=== PATIENT | male | born 1975 | race Caucasian/White ===

== ENCOUNTER 2024-06-12 11:22 | Outpatient (AMB) | payer OTHER, SELFPAY ==
[2024-06-12 11:29] VITALS: BP 130/78; PULSE 80; TEMP 36.4; O2SAT 97; BMI 40.9
--- NOTE | 2024-06-12 11:29 | AM.OFFWIN_ITS ---
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 He states the wheezing has resolved yesterday. He tells me he is able to eat and drink normally, he has been taking the following medications to help himself feel better which seemed to be working, NyQuil, [place] cold and flu as well as cough drops at night. He did test for COVID and it was negative at home. He denies a history of asthma or COPD. He states he felt the worst on Monday and a little bit better yesterday and even better today and he is wondering if he can go back to work. [facility] Social History Patient Tobacco Use Status: Never used Tobacco Review of Systems Const All systems reviewed & are unremarkable except as noted in HPI and below Physical Exam Vital Signs: Last Vital Signs Temp 97.6 F 06/12/24 11:29 Pulse 80 06/12/24 11:29 BP 130/78 06/12/24 11:29 Pulse Ox 97 06/12/24 11:29 Oxygen Delivery Method Room Air 06/12/24 11:29 BMI result Body Mass Index 40.9 Const General: cooperative, healthy appearing, comfortable and no acute distress Orientation/consciousness: patient oriented x3 Limitations: no limitations HEENT Head: Yes normal to inspection Ears: hearing grossly normal bilaterally, external ears normal and TM's normal bilaterally General nose exam: Normal external nose present, Normal nares present and No nasal discharge present Face and sinus: Yes normal facial exam and Yes sinuses nontender Mouth: Normal oral and palatal mucosa present and moist mucous membranes Throat: Yes tonsils normal, Yes uvula midline and Yes posterior oropharynx abnormal (Erythema) Eyes General: appearance normal, both eyes and all related structures Neck Neck: Yes normal visual inspection Resp Effort & Inspection: normal respiratory effort, able to speak in complete sentences, Actively coughing, no respiratory distress, not tachypneic, no tripod positioning and no use of accessory muscles Auscultation: clear to auscultation bilaterally Cardio Rate: regular rate Rhythm: regular rhythm Heart sounds: normal S1 and S2 Skin General skin exam: no rashes or lesions noted Neuro General: patient oriented x3 Extrem General: Yes normal to inspection and Yes no clubbing, cyanosis or edema Assessment & Plan Assessment & Plan (1) URI (upper respiratory infection): Code(s): J06.9 - Acute upper respiratory infection, unspecified Qualifiers: URI type: unspecified URI Qualified Code(s): J06.9 - Acute upper respiratory infection, unspecified Plan: Vital signs are stable, patient well-appearing and physical exam was unremarkable. I did test him for flu COVID and RSV and wrote him a work note. Recommended he continue with [id number] medications to treat his symptoms as this is likely a viral illness. Plan See above Orders: Orders SARS-CoV2/FLU/RSV Today J06.9 - Acute upper respiratory infection, unspecified Coding Level of Care Code New Pt Level 3 (64607) Diagnoses Upper respiratory tract infection, unspecified type J06.9 URI type: unspecified URI
== END 2024-06-12 12:15 | disposition home or self-care (01) ==
PROVIDERS: PCP Hospitalist; Visit Provider Physician Assistant
DX: J06.9 Acute upper respiratory infection, unspecified (principal)

== ENCOUNTER 2024-06-12 11:22 | Outpatient (REF) | payer OTHER, SELFPAY ==
[2024-06-12 14:21] LABS: Influenza A PCR NEGATIVE (Negative); Influenza B PCR NEGATIVE (Negative); Resp Syncy Virus RNA Qual PCR NEGATIVE (Negative); SARS COV2 PCR INHOUSE NEGATIVE (Negative)
== END 2024-06-12 11:23 | disposition home or self-care (01) ==
LOC: HO.LNP 11:22
PROVIDERS: PCP Hospitalist; Visit Provider Physician Assistant
DX: J06.9 Acute upper respiratory infection, unspecified (principal)
CPT/HCPCS: 0241U

== ENCOUNTER 2025-04-09 08:26 | Outpatient (AMB) | payer OTHER, SELFPAY ==
--- NOTE | 2025-04-09 08:43 | AM.OFFWIN_ITS ---
Intake Vital Signs 04/09/25 08:44 Height 5 ft 10 in Weight 288 lb BMI 41.3 BP 128/84 Blood Pressure Location Lt brachial Position Sitting Pulse 85 Pulse Source Pulse Oximeter Temp 98.4 F Temp Source Oral Pulse Oximetry (%) 95 Oxygen Delivery Method Room Air Intake Visit Reasons: ep coughing, sob when sleeping Intake Note: pt presents with chest congestion with coughing, body chills, SOB with sleep (denies any sleep apnea)- s/s x3 days Patient Tobacco Use Status: Never used Tobacco Allergies No Known Allergies Allergy (Verified 04/09/25 08:45) Do you need a note to return to daycare/school/sports/work: Yes HPI HPI Comments History of Present Illness Details History - The patient is a 50-year-old male pres enting with symptoms of a respiratory infection. - Symptoms began after returning from [facility] 3 days ago, including cough and fever, with the cough causing rib pain and wheezing, especially when lying down. - Fever resolved, but cough persisted; n o history of asthma or COPD, and the patient is a non-smoker. - Self-treatment with Mucinex and NyQuil provided some relief, with wheezing and coughing mainly at night. Physical Exam General: Cooperative, healthy appearing, comfortable and no acute distress Orientation/consciousness: Patient oriented x3 Limitations: No limitations Head: Normal to inspection Ears: Hearing grossly normal bilaterally, external ears normal and TM's normal bilaterally Nose: Normal external nose present, Normal nares present and No nasal discharge present Face and sinus: Normal facial exam and Yes sinuses nontender Mouth: Normal oral and palatal mucosa present and moist mucous membranes Throat: Yes tonsils normal, Yes uvula midline. Posterior oropharynx erythema, no exudates Eyes: Appearance normal, both eyes and all related structures Neck: Normal visual inspection, full ROM Respiratory: Clear to auscultation bilaterally. Normal respiratory effort, able to speak in complete sentences, not Actively coughing, no respiratory distress, not tachypneic, no tripod positioning and no use of accessory muscles Cardiovascular: Regular rate and rhythm. Normal S1 and S2 Skin: No rashes or lesions noted Neuro: Patient oriented x3 Extremities: Normal to inspection and Yes no clubbing, cyanosis or edema PFSH Social History Patient Tobacco Use Status: Never used Tobacco Review of Systems Const All systems reviewed & are unremarkable except as noted in HPI and below Physical Exam Vital Signs: Last Vital Signs Temp 98.4 F 04/09/25 08:44 Pulse 85 04/09/25 08:44 BP 128/84 04/09/25 08:44 Pulse Ox 95 04/09/25 08:44 Oxygen Delivery Method Room Air 04/09/25 08:44 BMI result Body Mass Index 41.3 Assessment & Plan Assessment & Plan (1) URI (upper respiratory infection): Code(s): J06.9 - Acute upper respiratory infection, unspecified Qualifiers: URI type: unspecified URI Qualified Code(s): J06.9 - Acute upper respir atory infection, unspecified Plan: Patient was informed and verbally consented to the use of an ambient scribe for clinic note documentation during this visit. Acute Viral Respiratory Infection - VSS, pt well appearing and PE unremarkable. - Symptomatic treatment with Tessalon Perles for nighttime cough suppression to aid sleep. - Continue DayQuil and NyQuil for symptom management, with Mucinex as an option for decongestion. - Advised to wear a mask at work to reduce viral transmission risk. - Okay to write work note for 3 days. Orders: [place] Resp Pathogen [place] [facility] [place] J06.9 - Acute upper respiratory infection, un specified Medications: New benzonatate 200 mg PO BEDTIME PRN 10 caps 0RF cough Coding Level of Care Code New Pt Level 3 (70358) Diagnoses Upper respiratory tract infection, unspecified type J06.9 URI type: unspecified URI
[2025-04-09 08:44] VITALS: BP 128/84; PULSE 85; TEMP 36.9; O2SAT 95; BMI 41.3
--- OUTSIDE RECORDS SUMMARY | 2025-04-09 09:43 | XMS_ITS | Clinical Summary ---
Author Organization [facility] Address [address] [place] [address] Phone Care Team Providers Care Lapidary Apprentice Name Role Phone Keven Lewis MD Primary Care Provider [phone] Allergies No known active allergies Medications No known medications Social History Tobacco Use Types Packs/Day Years Used Date Smoking Tobacco: Never Smokeless Tobacco: Never Alcohol Use Standard Drinks/Week Comments Yes 0 (1 standard drink = 0.6 oz pur e alcohol) occassionally Education Answer Date Recorded Are you interested in more education? Not on sabrina e 11/25/2022 Are you concerned about learning? Not on file 11/25/2022 No 11/25/2022 No 11/25/2022 Digital Access Answer Date Recorded No 12/27/2022 No 12/27/2022 Reliable internet access at home? Not on file 12/27/2022 Device with a working camera? Not on file Sex and Gender Information Value Date Recorded Sex Assigned at Male 03/31/2020 12:24 PM EDT Legal Sex Male 12:15 PM EDT Gender Identity Male 03/31/2020 12:24 PM EDT Sexual Orientation Not on file Last Filed Vital Signs Vital Sign Reading Time Taken Comments Blood Pressure 155/100 03/31/2020 12:20 PM EDT Pulse 74 03/31/2020 12:20 PM EDT Temperature 35.6 C (96.1 F) 03/31/2020 12:20 PM EDT Respiratory Rate 20 03/31/2020 12:20 PM EDT Oxygen Saturation 96% 03/31/2020 12:20 PM EDT Inhaled Oxygen Concentration - - Weight 124.7 kg (275 lb) 03/31/2020 12:20 PM EDT Height 177.8 cm (5' 10 ) 03/31/2020 12:20 PM EDT Body Mass Index 39.46 03/31/2020 12:20 PM EDT Plan of Treatment Not on file Medical Devices Not on file Insurance [address] [address] PPO EPO PPO [place] [address] [place] [address] [place] [address] [address] [place] [address] [address] PPO EPO PPO EPO PPO EPO PPO EPO [employer] Care Teams Lapidary Apprentice Relationship Specialty Start Date End Date Keven Lewis MD PCP - General Internal Medicine 03/31/20 Additional Source Comments The information contained in this document represents components of the legal health record. It is not the complete legal health record.[facility]
== END 2025-04-09 09:23 | disposition home or self-care (01) ==
PROVIDERS: PCP Hospitalist; Visit Provider Physician Assistant
DX: J06.9 Acute upper respiratory infection, unspecified (principal)

== ENCOUNTER 2025-04-09 08:26 | Outpatient (REF) | payer OTHER, SELFPAY ==
[2025-04-09 12:46] LABS: Chlamydia pneumoniae PCR Not Detected (Not Detect.); Coronavirus 229E PCR Not Detected (Not Detect.); Coronavirus HKU1 PCR Not Detected (Not Detect.); Coronavirus NL63 PCR Not Detected (Not Detect.); Coronavirus OC43 PCR Not Detected (Not Detect.); RSV PCR Not Detected (Not Detect.); Rhino/Enterovirus PCR Detected (Not Detect.)
[2025-04-09 13:31] LABS: Influenza A H1 PCR Not Detected (Not Detect.); Influenza A H1-2009 PCR Not Detected (Not Detect.); Influenza A H3 PCR Not Detected (Not Detect.); SARS-CoV-2 PCR Not Detected (Not Detect.)
== END 2025-04-09 08:27 | disposition home or self-care (01) ==
LOC: HO.LAB 08:26
PROVIDERS: PCP Hospitalist; Visit Provider Physician Assistant
DX: J06.9 Acute upper respiratory infection, unspecified (principal); Z79.899 Other long term (current) drug therapy
CPT/HCPCS: 87633

== ENCOUNTER 2025-07-21 10:15 | Outpatient (REF) | payer OTHER, SELFPAY ==
[2025-07-21 14:28] LABS: Resp Syncy Virus RNA Qual PCR NEGATIVE (Negative); SARS COV2 PCR INHOUSE NEGATIVE (Negative)
--- OUTSIDE RECORDS SUMMARY | 2025-07-21 15:08 | XMS_ITS | Data Portability ---
Author Organization [place] [facility] Address [address] [place] [phone] Assessment Encounter Date Assessment Date Assessment LastModified by Organization Details LastModified Time 11/14/2020 11/14/2020 Overview/History : Pt is an otherwise healthy 45yo M with no sig PMH who is new to and to this MEET. Pt calls today with a 2 week hx of cough. He reports a mild intermittent ENGLAND when he has more forceful coughing episodes. Reports a hx of seasonal allergies. Denies any sore throat, SOB, INFANTE, change in sense of taste/smell, n/v/d, fever or chills. Exam: Pt is A/Ox3, non-toxic appearing, VSS, HRR, resp reg and unlabored on RA, lungs CTA bilat. HEENT exam pos for mild erythema to the bilat ear canals and mild cobble stoning. DDx considered, but not limited to: Seasonal Allergies: likely given prior hx, sx and PE COVID: possible given length of sx, but mild in nature, no known recent exposures URI: possible, but sx have been present for 2 weeks Work up/Results: COVID: pending Plan/Discussion: Pt advised to use his allergy medications to help with sx. Advised on s/s of COVID, when to report to the ER, and OTC medications to use for sx as needed as well as to self isolate until the results of the test are known. Patients PCP contacted and updated on patient status. Patient verbalized understanding of discharge instructions and when to follow up with PCP/911/ED as needed. Patient in agreement with current plan and treatment. [email or web address] Not available 11/14/2020 14:22:21 11/16/2020 11/16/2020 Time On Scene with Patient: 00:07:51 [email or web address] Not available 11/16/2020 18:16:12 Plan of Treatment Reminders Order Date Submit Date Provider Last Modified By Organization Details Last Modified Time Details Appointments None recorded. Lab SARS CoV 2 RNA (COVID-19), QL, patient admitting representative-PCR, respiratory specimen 2020 021 [facility] (Centralized Electronic Ordering - All Locations), Patient Can Go To The Location Of Their Choice, [id number] 07:38:25 Referral None recorded. Procedures None recorded. Surgeries None recorded. Imaging None recorded. Medication Orders None recorded. Patient TargetsNo targets recorded. Patient Instructions Encounter Date Encounter Id Patient Instructions Last Modified By Organization Details Last Modified Time 11/14/2020 [id number] What is coronavirus disease 2019? Coronavirus disease 2019 (COVID-19) is a respiratory illness that can spread from person to person. The virus that causes COVID-19 is a novel coronavirus that was first identified during an investigation into an outbreak in [facility]. Can I get COVID-19? Yes. COVID-19 is spreading from person to person in parts of the world. Risk of infection from the virus that causes COVID-19 is higher for people who are close contacts of someone known to have COVID-19, for example household members. Other people at higher risk for infection are those who live in or have recently been in an area with ongoing spread of COVID-19. How does COVID-19 spread? The virus that causes COVID-19 probably emerged from an animal source, but is now spreading from person to person. The virus is thought to spread mainly between people who are in close contact with one another (within about 6 feet) through respiratory droplets produced when an infected person coughs or sneezes. It also may be possible that a person can get COVID-19 by touching a surface or object that has the virus on it and then touching their own mouth, nose or possibly their eyes, but this is not thought to be the main way the virus spreads. What are the symptoms of COVID-19? Patients with COVID-19 have mild to severe respiratory illness with symptoms of: fever cough shortness of breath What are severe complications from this virus? Some patients have pneumonia in both lungs, multi-organ failure and in some cases . People can help protect themselves from respiratory illness with everyday preventative actions. Avoid close contact with people who are sick. Avoid touching your eyes, nose, and mouth with unwashed hands. Wash your hands often with soap and water for at least 20 seconds. Use an alcohol-based hand pediatric pathologist that contains at least 60% alcohol if soap and water are not available If you are sick, to keep from spreading respiratory illness to others, you should Stay home when you are sick. Cover your cough or sneeze with a tissue, then throw the tissue in the trash. Clean and disinfect frequently touched objects and surfaces. Is there a treatment? There is no specific antiviral treatment for COVID-19. People with COVID-19 can seek medical care to help relieve symptoms. FOR MORE INFORMATION: [email or web address].GOV/COVID 19 [email or web address] Not available 11/14/2020 14:15:00 11/16/2020 [id number] Follow up to re-collect Covid swab. [email or web address] Not available 11/16/2020 18:29:21 Reason for Referral None Reported. Results Created Date Observation Date Name Description Value Unit Range Abnormal Flag Note LastModifiedBy Organization Detail LastModifiedTime 11/17/19 21 11/17/2020 covid -19 (nove l coron aviru s) PCR covid-19 PCR result (neg) NEGAT ARJUN 2019- novel Coron aviru s (2018 -nCoV ) not detec adria by real- time RT-PC R. Note: If clini pavel suspi cion for COVID -19 is high, eze nue to maint ain preca ution s and consi malia repea t testi ng. Resul t repor adria to the [facility]. To preve nt error s in diagn osis, test resul ts shoul d be inter prete d in the gilbert xt of clini pavel findi ngs and other labor atory data. Rare polym orphi sms exist that could lead to false -nega tive or false -posi tive resul ts. If resul ts obtai rebecca do not match the clini pavel findi ngs, addit ional testi ng shoul d be consi dered . This test has been autho rized by the FDA under an Emerg ency Use Autho rizat ion (EUA) for use by [facility] labor atori es. Testi ng perfo rmed by real time PCR shalinii ricardo GREY 6800 SARS- CoV-2 test. Not Available [facility] (Centralized Electronic Ordering - All Locations) Patient Can Go To The Location Of Their Choice, [id number] 11/17/2020 15:13:55 11/17/19 21 11/17/2020 covid -19 (nove l coron aviru s) PCR covid-19 PCR specimen source NASAL Not Available [facility] (Centralized Electronic Ordering - All Locations) Patient Can Go To The Location Of Their Choice, [id number] 11/17/2020 15:13:55 Result Notes None recorded. Medical Equipment None Reported. Allergies No known drug allergies Medications Not known to be on any medication Vitals Date Recorded Respiratory rate Heart rate Body temperature Oxygen saturation Systolic And Diastolic Provider Name and Address Organization Details Last Updated DateTime 20 /min 74 /min 98.9 [degF] 100 % 122/76 mm[Hg] Not Available [facility] 14:00:19 Date Recorded Body temperature Oxygen saturation Respiratory rate Heart rate Systolic And Diastolic Provider Name and Address Organization Details Last Updated DateTime 98.2 [degF] 98 % 16 /min 68 /min 128/70 mm[Hg] Not Available [facility] 18:15:01 Social History Question Answer Notes LastModified by DoubleRecall Details LastModified Time Tobacco Smoking Status Never Smoker LISSETT SOLANO, [address] [place], [address], [place] [facility] 11/14/2020 13:57:42 Do You Have An Advance Directive? No Information not available 11/14/2020 What Is Your Code Status? Full Code Information not available 11/14/2020 Excessive Alcohol Or Drug Use No Information not available 11/14/2020 Sex: Unknown Functional Status Question Answer Note LastModified by DoubleRecall Details LastModified Time Do you or have you ever used e-cigarettes or vape? Never used electronic cigarettes Information not available 11/14/2020 Mental Status None recorded. Family History Relationship Description Onset Age of this Age Resolved Age Notes LastModified by Organization Details LastModified Time Father Coronary arterioscler osmaria eugenia posey Not available 11/14 13:58:16 Medical History Condition Response Coronary Artery Disease N Depression N COPD N Diabetes N Cancer N Stroke N Asthma N High Cholesterol N Pulmonary Embolism N Hypertension N Kidney Disease N Past Encounters Encounter ID Performer Location Encounter Start Date Encounter Closed Date Diagnosis/Indication Diagnosis SNOMED-CT Code Diagnosis ICD10 Code Diagnosis IMO Codes Diagnosis Note [id number] LISSETT LACKEYSIMON, [employer] [facility] [address] [place] [address] 11/14/2020 13:53:49 11/14/2020 14:25:23 Seasonal allergic rhinitis 162584949 J30.2 Exposure t o communicable disease 773908216 Z20.822 [id number] Angle Cunningham [employer] [facility] [address] [place] [address] 11/16/2020 18:08:27 11/16/2020 18:32:32 Health Concerns Section Related Observation LastModified by Organization Detai ls LastModified Time None Recorded Concern Status LastModified by Organization Details LastModified Time None Recorded Advance Directives Directive N: Payers Insurance Date Sequence Insurance Name Policy Number Policy Diaz Covered Member ID Diaz Member ID Guarantor Name 11/14/2020 1 [employer] [id number] Demetrius Cournoyer [id number] Demetrius Cournoyer 11/14/2020 1 [employer] [id number] Demetrius Cournoyer [id number] Demetrius Cournoyer 11/14/2020 1 [employer] [id number] Demetrius Cournoyer [id number] 1 Demetrius Cournoyer 11/14/2020 1 [employer] [id number] Demetrius Cournoyer [id number] 1 Demetrius Cournoyer 11/14/2020 1 [employer] [id number] Demetrius Cournoyer [id number] 1 Demetrius Cournoyer 11/14/2020 1 [employer] [id number] Demetrius Cournoyer [id number] 1 Demetrius Cournoyer 11/14/2020 1 *SELF PAY* Demetrius Cournoyer [id number] Demetrius Cournoyer 11/14/2020 1 DARRION [id number] [facility] [id number] 1 Demetrius Sanamohamud Notes Date Note Type Note Provider Name and Address Organization Details Recorded Time 11/14/2020 text/html Pt reports a 2 week hx of a cough. States the cough is worse at night when he is trying to sleep. Reports intermittent [place]GL[place] when he has forceful coughing episodes, denies nasal congestion, sore throat, earache, n/v/d, change in sense of taste/smell, fever/chills. denies orthopnea, SOB, INFANTE. edema. LISSETT SOLANO NP [address] [place], [address], [place] [facility] 11/14/2020 14:22:50 11/16/2020 text/html follow up DH re-collection of Covid swab. Lab unable to locate original PCR swab obtained this past Monday. VSS. Angle Cunningham NP [address], [place], [address], [place] [facility] 11/16/2020 18:29:31
== END 2025-07-21 10:16 | disposition home or self-care (01) ==
LOC: HO.LNP 10:15
PROVIDERS: Physician Assistant Medical; PCP Hospitalist
DX: R55 Syncope and collapse (principal); R09.89 Other specified symptoms and signs involving the circulatory and respiratory systems; Z03.818 Encounter for observation for suspected exposure to other biological agents ruled out
CPT/HCPCS: 87637

== ENCOUNTER 2025-07-21 10:15 | Outpatient (AMB) | payer OTHER, SELFPAY ==
[2025-07-21 11:29] VITALS: BP 132/88; PULSE 71; TEMP 36.3; O2SAT 97; BMI 41.9
--- NOTE | 2025-07-21 11:29 | MHC.OFFWIV ---
Intake Vital Signs 07/21/25 11:29 Height 5 ft 10 in Weight 292 lb BMI 41.9 BP 132/88 Blood Pressure Location Lt brachial Position Sitting Pulse 71 Pulse Source Pulse Oximeter Temp 97.4 F Temp Source Oral Pulse Oximetry (%) 97 Oxygen Delivery Method Room Air Intake Visit Reasons: EP cough congestion at night wheezing Intake Note: pt presents with chest congestion and coughing, wheezing at night x3 days- states he's most concerned with syncope episode yesterday morning when he woke up and went to use bathroom- at that time his ears were blocked and he was sweating Patient Tobacco Use Status: Never used Tobacco Allergies No Known Allergies Allergy (Verified 07/21/25 11:31) Do you need a note to return to daycare/school/sports/work: Yes HPI HPI Comments History of Present Illness Details History - The patient is a 50 year old male presenting with cold-like symptoms and a syncopal episode. - He has been experiencing cold symptoms since last Monday, which worsen at night and include coughing fits severe enough to cause gagging. - The primary concern is a syncopal episode that occurred one morning around 6:45 AM when he got up to use the bathroom. - He did not feel himself fall but was aware of landing, and afterward, he experienced ear pressure and profuse diaphoresis. - He had the chills and was under blankets in his bed. - He noted his urine was dark yellow at the time. - He may have had another episode the previous night while lying down, as he awoke feeling sweaty again. - Associated symptoms include occasional shortness of breath, a productive cough with some green sputum, subjective fever, and chills. - He also reported a single episode of diarrhea. - He denies any history of asthma, chest pain, or vomiting. - He has been trying to hydrate with water and orange juice. - His father had diabetes, but the patient himself has not been tested. - He denies any history of smoking. - He denies sick contacts or recent travel. Physical Exam General: Cooperative, healthy appearing, comfortable and no acute distress Orientation/consciousness: Patient oriented x3 Limitations: No limitations Head: Normal to inspection Ears: Hearing grossly normal bilaterally, external ears full of wax, which may be causing dizziness Nose: Normal external nose present, normal nares present, and no nasal discharge present. Face and sinus: Sinuses nontender to palpation. Mouth: Normal oral and palatal mucosa present and moist mucous membranes noted. Throat: Tonsils normal. Uvula is midline. Posterior oropharynx with erythema and no exudates. Eyes: Appearance normal, both eyes and all related structures Neck: Normal visual inspection, full ROM. No lymphadenopathy noted. Respiratory: Clear to auscultation bilaterally. Normal respiratory effort, able to speak in complete sentences. No respiratory distress, not tachypneic, no tripod positioning and no use of accessory muscles. Wheezing noted at night. Cardiovascular: Regular rate and rhythm. Normal S1 and S2 Skin: No rashes or lesions noted. Sweating episodes reported. Patient was informed and verbally consented to the use of an ambient scribe for clinic note documentation during this visit REPLACED BY [facility] Social History Patient Tobacco Use Status: Never used Tobacco Review of Systems Const All systems reviewed & are unremarkable except as noted in HPI and below Physical Exam Vital Signs: Last Vital Signs Temp 97.4 F 07/21/25 11:29 Pulse 71 07/21/25 11:29 BP 132/88 07/21/25 11:29 Pulse Ox 97 07/21/25 11:29 Oxygen Delivery Method Room Air 07/21/25 11:29 BMI result Body Mass Index 41.9 Assessment & Plan Assessment & Plan (1) Viral illness: Code(s): B34.9 - Viral infection, unspecified (2) Syncope: Code(s): R55 - Syncope and collapse Qualifiers: Syncope type: unspecified Qualified Code(s): R55 - Syncope and collapse Plan Most likely viral illness vs covid vs flu vs RSV plan - The patient's syncope and associated symptoms of fatigue and lightheadedness are likely secondary to a viral illness, possibly complicated by dehydration. - Pneumonia is a differential diagnosis given the productive cough and systemic symptoms. - Plan includes a chest x-ray to rule out pneumonia and a viral panel for diagnostic clarity. - Will treat empirically for viral bronchitis with a prescription for cough medicine, an inhaler to help open the airways, and prednisone for inflammation and wheezing. - If the chest x-ray is positive for pneumonia, antibiotics will be prescribed. - Counseled on the importance of increasing fluid intake, emphasizing water, Gatorade, and electrolytes to combat dehydration. - All results will be communicated to the patient via phone call. - follow up with PCP Orders: Orders XR chest 2V Today R05.9 - Cough, unspecified SARS-CoV2/FLU/RSV Today R09.89 - Other specified symptoms and signs involving the circulatory and respiratory systems Throat Culture Today J02.9 - Acute pharyngitis, unspecified Medications: New albuterol sulfate 90 mcg/actuation 2 puffs inhalation Q6H PRN 8.5 grams 0RF shortness of breath or wheezing or cough prednisone 40 mg (2 x 20 mg) PO DAILY 10 tabs 0RF 5 days benzonatate 100 mg PO bid-tid PRN 21 caps 0RF Cough 7 days Coding Level of Care Code Est Pt Level 4 (04529) Diagnoses Viral illness B34.9 Syncope, unspecified syncope type R55 Syncope type: unspecified
--- OUTSIDE RECORDS SUMMARY | 2025-07-21 12:22 | XMS_ITS | Clinical Summary ---
Author Organization [facility] Address [address] [place] [address] Phone Care Team Providers Care Board Operator Name Role Phone Keven Lewis MD Primary Care Provider [phone] Allergies No known active allergies Medications No [...] file Medical Devices Not on file Insurance [place] [address] [place] [address] [place] [address] [place] [address] PPO EPO PPO EPO PPO EPO PPO EPO PPO EPO PPO EPO PPO EPO [employer] Care Teams Board Operator Relationship Specialty Start Date End Date Keven Lewis MD PCP - General Internal Medicine 03/31/20 Additional Source Comments The information contained in this document represents components of the legal health record. It is not the complete legal health record.[facility]
== END 2025-07-21 12:16 | disposition home or self-care (01) ==
PROVIDERS: PCP Hospitalist; Visit Provider Physician Assistant Medical
DX: B34.9 Viral infection, unspecified (principal); R55 Syncope and collapse

== ENCOUNTER 2025-07-21 12:12 | Outpatient (REF) | payer OTHER, SELFPAY ==
--- NOTE | ~2025-07-21 | XR_ITS ---
EXAMINATION: XR CHEST 2 VIEWS HISTORY: R05.9 - Cough, unspecified COMPARISON: There are no prior studies available for comparison. FINDINGS: PA and lateral views of the chest are submitted. There are low lung volumes. The lungs are clear. There is no pleural effusion, pneumothorax, or pulmonary vascular congestion. The heart is normal in size. The bones are intact. XR/XR chest 2V IMPRESSION: Low lung volumes. The lungs are clear. Electronically signed by: Valerio Bose MD 07/21/2025 12:32 PM [facility]
== END 2025-07-21 12:13 | disposition home or self-care (01) ==
LOC: HO.HMGCX 12:12
PROVIDERS: Visit Provider Physician Assistant Medical
DX: R05.9 Cough, unspecified (principal)
CPT/HCPCS: 71046

== ENCOUNTER → 2025-07-21 12:15 | Outpatient (BNV) | payer OTHER, SELFPAY | PROVIDERS: Visit Provider Radiology Diagnostic Radiology | DX: J98.4 Other disorders of lung (principal) | CPT/HCPCS: 71046 ==